=== PATIENT | female | born 1965 | race Caucasian/White ===

== ENCOUNTER 2022-04-13 10:25 | Emergency (ER) | payer MEDICARE, MEDICAID ==
[~2022-04-13] VITALS: Ht 157.5 cm; Wt 54.0 kg
[2022-04-13 11:03] VITALS: BP 158/89
[2022-04-13] MEDS ORDERED: CLON1TAB23 PO (11:06)
[2022-04-13] MEDS ORDERED: CLON1TAB23 MT (12:00)
[2022-04-14] MEDS ORDERED: TEMA7.5C MT (06:42)
== END 2022-04-13 12:06 | disposition home or self-care (01) ==
LOC: ER 10:25
DX: Z76.0 Encounter for issue of repeat prescription (principal); Z86.59 Personal history of other mental and behavioral disorders; Z98.890 Other specified postprocedural states
CPT/HCPCS: 99283

== ENCOUNTER 2022-04-14 06:29 | Emergency (ER) | payer MEDICARE, MEDICAID ==
[~2022-04-14] VITALS: Ht 160 cm; Wt 54.0 kg
[~2022-04-14 06:29] MED LIST: CLON1TAB23 MT; CLON1TAB23 PO
[2022-04-14 06:30] VITALS: BP 138/86
[2022-04-14] MEDS ORDERED: TEMA7.5C MT (06:42)
== END 2022-04-14 06:53 | disposition home or self-care (01) ==
LOC: ER 06:29
DX: Z76.0 Encounter for issue of repeat prescription (principal); I10 Essential (primary) hypertension; G47.00 Insomnia, unspecified
CPT/HCPCS: 99283

== ENCOUNTER 2022-04-14 10:57 | Emergency (ER) | payer MEDICARE, MEDICAID ==
[~2022-04-14] VITALS: Ht 167.6 cm; Wt 67.0 kg
[~2022-04-14 10:57] MED LIST changes: +TEMA7.5C MT
[2022-04-14 11:01] VITALS: BP 190/114
== END 2022-04-14 11:47 | disposition left against medical advice (07) ==
LOC: ER 11:01
DX: Z53.21 Procedure and treatment not carried out due to patient leaving prior to being seen by health care provider (principal); Z76.0 Encounter for issue of repeat prescription; R56.9 Unspecified convulsions; I10 Essential (primary) hypertension